=== PATIENT | male | born 1990 | race Caucasian/White ===

== ENCOUNTER 2019-03-01 14:12 | Emergency (ER) | payer OTHER ==
[2019-03-01] MEDS ORDERED: traMADol TAB* 50 MG PO ONE (15:27)
[2019-03-01 16:00] VITALS: BP 143/100
--- NOTE | 2019-03-01 16:24 | ED ---
Laceration/Wound HPI - HPI Summary HPI Summary: 28 year old male presents to the emergency department for evaluation of a wound on his left forearm. Pt had an accident with the white lead grinder at work earlier today which cut his forearm. He denies loss of ROM, weakness, and numbness to the area. His last tetanus vaccine was in December 2014. 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 Time Seen by Provider: 03/01/19 14:21 Hx Obtained From: Patient Mechanism of Injury: Sharp/Blunt Trauma Aggravating: Movement Timing: Constant Pain Intensity: 7 Pain Scale Used: 0-10 Numeric Associated Signs & Symptoms: Redness, Pain Related Hx: Occupational Injury, Recent Trauma - Allergy/Home Medications Allergies/Adverse Reactions: Allergies Allergy/AdvReac Type Severity Reaction Status Date / Time Unable to Assess Allergy Verified 03/01/19 14:22 PMH/Surg Hx/FS Hx/Imm Hx Previously Healthy: Yes Infectious Disease History: No Infectious Disease History: Reports: Traveled Outside the in Last 30 Days - [facility] - Social History Alcohol Use: Occasionally Substance Use Type: Reports: None Smoking Status (MU): Never Smoked Tobacco Review of Systems Constitutional: Negative Negative: Fever, Chills, Fatigue Cardiovascular: Negative Negative: Palpitations, Chest Pain Respiratory: Negative Negative: Shortness Of Breath Negative: Decreased ROM Positive: Other - open wound on left forearm. Negative: Rash Neurological: Negative Negative: Weakness, Paresthesia, Numbness All Other Systems Reviewed And Are Negative: Yes Physical Exam Triage Information Reviewed: Yes Vital Signs On Initial Exam: Initial Vitals Temp Pulse Resp BP Pulse Ox 99.1 F 80 18 146/93 99 03/01/19 14:16 03/01/19 14:16 03/01/19 14:16 03/01/19 14:16 03/01/19 14:16 Vital Signs Reviewed: Yes Appearance: Positive: Well-Appearing, Well-Nourished Skin: Positive: Warm, Skin Color Reflects Adequate Perfusion, Dry, Tender - laceration on left forearm, Other - 4x3 cm macerated laceration on the left dorsal forearm Head/Face: Positive: Normal Head/Face Inspection Eyes: Positive: Normal, EOMI, Conjunctiva Clear ENT: Positive: Normal ENT inspection, Hearing grossly normal Respiratory/Lung Sounds: Positive: Clear to Auscultation, Breath Sounds Present Cardiovascular: Positive: Normal, RRR Musculoskeletal: Positive: Normal, Strength/ROM Intact Neurological: Positive: Normal, Sensory/Motor Intact, Alert, Oriented to Person Place, Time Diagnostics - Vital Signs Vital Signs Temp Pulse Resp BP Pulse Ox 03/01/19 15:59 98.6 F 86 16 143/100 97 03/01/19 14:16 99.1 F 80 18 146/93 99 - Laboratory Lab Statement: Any lab studies that have been ordered have been reviewed, and results considered in the medical decision making process. Laceration Repair Course/Dx - Course Course Of Treatment: Pt presents with a macerated laceration on his left dorsal forearm. His exam reveals no neurovascular deficits. Due to loss of superficial skin tissue suturing was not indicated for repair. Pt's wound was irrigated and cleansed with hibiclens. Thera-Honey applied to the wound and was dressed with telfa dressing and coban wrap. Last tetanus vaccine given 4 years ago. Pt instructed to keep the area clean and due a dressing change daily with the thera -honey, telfa, and coban. He was advised to keep the wound covered while working until it is healed. Tramadol 50mg prescribed as needed for pain management. - Differential Dx Differental Diagnoses: Abrasion, Laceration, Puncture Wound - Clinical Impression Provider Diagnoses: Laceration of left forearm Discharge - Sign-Out/Discharge Documenting (check all that apply): Patient Departure Patient Received Moderate/Deep Sedation with Procedure: No - Discharge Plan Condition: Stable Disposition: HOME Prescriptions: traMADol TAB* [Ultram*] 50 mg PO Q8H PRN #6 tab MDD 3 PRN Reason: Pain Patient Education Materials: Abrasion (ED) Referrals: No Primary Care Phys,NOPCP [Primary Care Provider] - Additional Instructions: Cleanse wound thoroughly daily with soap and water, gently you may get the area wet tomorrow Thera-Honey gel to the area, followed by 1/2 telfa dressing, and wrapped with alan bandage continue this x 4-6 days Leave open to air after several days when returning home from work - as long as area is not continuing to bleed - Billing Disposition and Condition Condition: STABLE Disposition: Home
== END 2019-03-01 15:59 | disposition home or self-care (01) ==
LOC: ED 14:12
DX: S51.812A Laceration without foreign body of left forearm, initial encounter (principal); W31.89XA Contact with other specified machinery, initial encounter; Y92.9 Unspecified place or not applicable; Y99.0 Civilian activity done for income or pay
CPT/HCPCS: 12001; 99282; A9270-GY